=== PATIENT | female | born 1955 | race Caucasian/White ===

== ENCOUNTER 2018-03-27 07:34 | Day surgery (SDC) | payer OTHER ==
[2018-03-21 14:20] VITALS: BMI 20.5
[2018-03-27] MEDS ORDERED: PROPOFOL 20 ML ONE ×2 (07:38)
[2018-03-27] MEDS ORDERED: LIDOCAINE HCL/PF 2% SDV 5ML VIAL ONE (07:38)
[2018-03-27 08:59] VITALS: TEMP 97.8
[2018-03-27 09:22] VITALS: BP 115/62; PULSE 55
== END 2018-03-27 09:25 | disposition home or self-care (01) ==
LOC: FASU-ENDO 07:34
PROVIDERS: ATTEND Internal Medicine Gastroenterology
PROC: 0DJD8ZZ Inspection of Lower Intestinal Tract, Via Natural or Artificial Opening Endoscopic (ICD-10-PCS; principal; 2018-03-27 08:31)
DX: Z12.11 Encounter for screening for malignant neoplasm of colon (principal); Z80.0 Family history of malignant neoplasm of digestive organs